=== PATIENT | female | born 1990 | race African-American/Black ===

== ENCOUNTER 2019-01-19 19:54 | Emergency (ER) | payer SELFPAY ==
[~2019-01-19] VITALS: Ht 162.6 cm; Wt 109.0 kg
[2019-01-19 21:35] VITALS: BP 104/62
== END 2019-01-20 01:15 | disposition left against medical advice (07) ==
LOC: ER 19:54
DX: J02.9 Acute pharyngitis, unspecified (principal); R10.9 Unspecified abdominal pain; Z53.21 Procedure and treatment not carried out due to patient leaving prior to being seen by health care provider